=== PATIENT | female | born 1950 ===

== ENCOUNTER 2017-07-03 05:49 | Emergency (ER) | payer MEDICAID ==
[2017-07-03 05:49] VITALS: BMI 28.9
[2017-07-03 06:08] VITALS: BP 107/69; PULSE 73; RESP 18; TEMP 98.4; O2SAT 100
--- NOTE | 2017-07-03 06:34 | ED PDOC ---
HPI: Female Pain Time Seen by Provider: 07/03/17 06:00 Chief Complaint (Nursing): Female Genitourinary Chief Complaint (Provider): Female Genitourinary History Per: Patient History/Exam Limitations: no limitations Onset/Duration Of Symptoms: Days (yesterday morning.) Quality Of Discomfort: Burning, "Pain" Associated Symptoms: denies: Fever, Nausea, Vomiting, Back Pain, Other (No abdominal pain.) Additional Complaint(s): Gena Rivas is a 67 year old female with a past medical history of hypertension and arthritis who presents to the ED for chief complaints of burning and painful urination since yesterday morning, along with some associated urinary frequency. Denies any fever, vomiting, nausea, back pain, or abdominal pain. PMD: Dr. Sage Gustafson. Past Medical History Reviewed: Historical Data, Nursing Documentation, Vital Signs Vital Signs: Last Vital Signs Temp 98.4 F 07/03/17 06:00 Pulse 73 07/03/17 06:00 Resp 18 07/03/17 06:00 BP 107/69 07/03/17 06:00 Pulse Ox 100 07/03/17 06:00 - Medical History PMH: Arthritis, HTN, Osteoporosis, TIA (1 yr ago?) Denies: Chronic Kidney Disease - Surgical History Surgical History: No Surg Hx - Family History Family History: States: No Known Family Hx - Home Medications Home Medications: Ambulatory Orders Medication Instructions Recorded Tobramycin 0.3% [Tobramycin 5 Ml] 1 drop OP TID #0 bottle 08/13/14 Aspirin [Aspirin] 81 mg PO DAILY 09/12/14 Ergocalciferol (Vitamin D2) 1.25 mg PO QWK 09/12/14 [Vitamin D2] Hydrochlorothiazide/Losartan 50 mg PO DAILY 09/12/14 [Losartan 50MG-HCTZ 12.5MG] Patient Own Med [Patient Own Med] 70 mg PO QWK 09/12/14 DiphenhydrAMINE [Benadryl] 1 - 2 tab PO Q6 PRN #24 cap 10/17/16 Hydrocortisone 1% Oint [Cortizone 0.5 gm TP BID #1 tube 10/17/16 1% Oint] Nitrofurantoin Macrocrystals 100 mg PO BID #14 cap 07/03/17 [Macrobid] - Allergies Allergies/Adverse Reactions: Allergies Allergy/AdvReac Type Severity Reaction Status Date / Time No Known Allergies Allergy Verified 10/17/16 10:49 Review of Systems ROS Statement: Except As Marked, All Systems Reviewed And Found Negative Constitutional: Negative for: Fever Gastrointestinal: Negative for: Nausea, Vomiting, Abdominal Pain Genitourinary Female: Positive for: Dysuria (Burning sensation with urination.) , Frequency (Frequency with urination.) Musculoskeletal: Negative for: Back Pain Physical Exam - Reviewed Nursing Documentation Reviewed: Yes Vital Signs Reviewed: Yes - Physical Exam Appears: Positive for: Well, Non-toxic, No Acute Distress Head Exam: Positive for: ATRAUMATIC, NORMAL INSPECTION, NORMOCEPHALIC Skin: Positive for: Normal Color, Warm Eye Exam: Positive for: Normal appearance, EOMI ENT: Positive for: Normal ENT Inspection Neck: Positive for: Normal Cardiovascular/Chest: Positive for: Regular Rate, Rhythm. Negative for: Murmur , Tachycardia Respiratory: Positive for: Normal Breath Sounds. Negative for: Wheezing, Respiratory Distress Gastrointestinal/Abdominal: Positive for: Normal Exam, Soft. Negative for: Tenderness Extremity: Positive for: Normal ROM Neurologic/Psych: Positive for: Alert, Oriented - ECG O2 Sat by Pulse Oximetry: 100 (RA) Pulse Ox Interpretation: Normal Medical Decision Making Medical Decision Makin: Initial Plan: * U-Dip * Urine culture * Re-Evaluation Initial Impression: Urinary tract infection. U-Dip is consistent with Urinary tract infection; Simple Uncomplicated Urinary tract infection. Patient discharged with prescription for Macrobid. Scribe Attestation: Documented by Shirley Thrasher acting as a scribe for Ivonne Adkins MD. Provider Scribe Attestation: All medical record entries made by the Scribe were at my direction and personally dictated by me. I have reviewed the chart and agree that the record accurately reflects my personal performance of the history, physical exam, medical decision making, and the department course for this patient. I have also personally directed, reviewed, and agree with the discharge instructions and disposition. Disposition - Clinical Impression Clinical Impression: Urinary tract infection - Disposition Referrals: Sage Gustafson [Family Provider] - Disposition Time: 18:30 Condition: GOOD Additional Instructions: Take your medication as instructed. Follow up with your PCP in 2 days. Prescriptions: Nitrofurantoin Macrocrystals [Macrobid] 100 mg PO BID #14 cap Instructions: Urinary Tract Infection in Women (GEN) Forms: [employer] (Kinyarwanda) Print Language: INDIAN
== END 2017-07-03 06:25 | disposition home or self-care (01) ==
LOC: H.ER 05:49
DX: N39.0 Urinary tract infection, site not specified (principal); I10 Essential (primary) hypertension; Z79.82 Long term (current) use of aspirin; Z86.73 Personal history of transient ischemic attack (TIA), and cerebral infarction without residual deficits

== ENCOUNTER 2017-10-17 06:55 | Emergency (ER) | payer MEDICAID ==
[2017-10-17 06:55] VITALS: BMI 28.9
[2017-10-17 07:18] VITALS: BP 145/81; PULSE 70; RESP 19; TEMP 98.4; O2SAT 100
[2017-10-17] MEDS ORDERED: Sodium Chloride 0.9% 1,000 ML IV STA (07:40)
[2017-10-17 08:06] LABS: BASO # 0.1 K/uL (0.0-0.2); BASO % 1.3 % (0.0-2.0); EOS # 0.1 K/uL (0.0-0.7); EOS % 2.5 % (0.0-4.0); HEMATOCRIT 39.3 % (34.0-47.0); LYMPH # 0.8 K/uL (1.0-4.3); LYMPH % 20.3 % (20.0-40.0); MEAN CELL VOLUME 87.4 fl (81.0-99.0); MEAN CORPUSCULAR HEMOGLOBIN 27.9 pg (27.0-31.0); MEAN PLATELET VOLUME 8.4 fl (7.2-11.7); MONO # 0.4 K/uL (0.0-0.8); MONO % 9.7 % (0.0-10.0); NEUT # 2.7 K/uL (1.8-7.0); NEUT % 66.2 % (50.0-75.0); NRBC % 0.2 % (0.0-0.0); RED CELL DISTRIBUTION WIDTH 14.2 % (11.5-14.5); WHITE BLOOD COUNT 4.1 K/uL (4.8-10.8)
[2017-10-17 08:36] LABS: ALKALINE PHOSPHATASE 81 U/L (38-126); ALT/SGPT 30 U/L (9-52); AST/SGOT 26 U/L (14-36); BILIRUBIN,TOTAL 0.5 mg/dl (0.2-1.3); BLOOD UREA NITROGEN 17 mg/dl (7-17); CALCIUM 8.9 mg/dL (8.4-10.2); CARBON DIOXIDE 29 mmol/L (22-30); CHLORIDE 107 mmol/L (98-107); GFR AFRICAN-AMERICAN > 60; GLUCOSE,RANDOM 88 mg/dL (65-105); SODIUM 144 mmol/l (132-148); TOTAL PROTEIN 7.8 G/DL (6.3-8.2)
[2017-10-17 10:07] LABS: RBC URINE 3 /hpf (0-3); URINE BACTERIA RARE (<OCC); URINE BILIRUBIN NEGATIVE (NEGATIVE); URINE BLOOD SMALL (NEGATIVE); URINE COLOR STRAW (YELLOW); URINE GLUCOSE (UA) NEG (Normal); URINE KETONE NEGATIVE (NEGATIVE); URINE LEUKOCYTE ESTERASE SMALL Leu/uL (Negative); URINE PROTEIN NEGATIVE (NEGATIVE); URINE UROBILINOGEN 0.2-1.0 mg/dL (0.2-1.0); WBC URINE 4 /hpf (0-5)
--- NOTE | 2017-10-17 10:15 | RAD ---
HISTORY: thoracic back pain COMPARISON: Chest radiographs 05/22/2014. TECHNIQUE: Chest PA and lateral FINDINGS: LUNGS: No active pulmonary disease. PLEURA: No significant pleural effusion identified. No pneumothorax apparent. CARDIOVASCULAR: Mild cardiomegaly noted. No pulmonary vascular derangement identified. OSSEOUS STRUCTURES: No significant abnormalities. VISUALIZED UPPER ABDOMEN: Normal. OTHER FINDINGS: None. IMPRESSION: Mild cardiomegaly. No acute pulmonary disease appreciated.
--- NOTE | 2017-10-17 10:28 | ED PDOC ---
HPI: Back Time Seen by Provider: 10/17/17 07:07 Chief Complaint (Nursing): Back Pain Past Medical History Vital Signs: Last Vital Signs Temp 98.4 F 10/17/17 07:16 Pulse 70 10/17/17 07:16 Resp 19 10/17/17 07:16 BP 145/81 10/17/17 07:16 Pulse Ox 100 10/17/17 07:16 - Medical History PMH: Arthritis, HTN, Osteoporosis, TIA (1 yr ago?) Denies: Chronic Kidney Disease - Home Medications Home Medications: Ambulatory Orders Medication Instructions Recorded Aspirin [Aspirin] 81 mg PO DAILY 09/12/14 Alprazolam [Xanax] 0.5 mg PO HS PRN 10/17/17 Ciprofloxacin [Cipro] 500 mg PO BID #14 tab 10/17/17 Cyclobenzaprine [Cyclobenzaprine 10 mg PO Q8 PRN #9 tab 10/17/17 HCl] Losartan/Hydrochlorothiazide 1 tab PO DAILY 10/17/17 [Losartan-Hctz 100-25 mg Tab] Naproxen [Naprosyn] 500 mg PO BID PRN 10/17/17 Naproxen [Naprosyn] 500 mg PO BID PRN #14 tablet 10/17/17 traMADol [Ultram] 50 mg PO TID PRN #12 tab 10/17/17 - Allergies Allergies/Adverse Reactions: Allergies Allergy/AdvReac Type Severity Reaction Status Date / Time No Known Allergies Allergy Verified 10/17/16 10:49 - Laboratory Results Result Diagrams: 10/17/17 07:50 10/17/17 07:50 Urine dip results: Positive for: Leukocyte Esterase (trace), Blood (TR) - ECG O2 Sat by Pulse Oximetry: 100 Pulse Ox Interpretation: Normal Disposition - Clinical Impression Clinical Impression: Back pain, UTI (urinary tract infection) - Patient ED Disposition Is Patient to be Admitted: No Counseled Patient/Family Regarding: Studies Performed, Diagnosis, Need For Followup, Rx Given - Disposition Disposition: Routine/Home Disposition Time: 10:26 Condition: STABLE Additional Instructions: Take medication as directed, return to ER for any worse or new symptoms. See your doctor in 2-3 days for re-evaluation. Prescriptions: Ciprofloxacin [Cipro] 500 mg PO BID #14 tab Cyclobenzaprine [Cyclobenzaprine HCl] 10 mg PO Q8 PRN #9 tab PRN Reason: Muscle Spasm Naproxen [Naprosyn] 500 mg PO BID PRN #14 tablet PRN Reason: Pain, Moderate (4-7) traMADol [Ultram] 50 mg PO TID PRN #12 tab PRN Reason: Pain, Moderate (4-7) Instructions: Thoracic Pain (ED), Back Pain (ED), Urinary Tract Infection in Women (ED) Forms: [employer] (Monegasque) Print Language: HAITIAN
--- NOTE | 2017-10-18 12:25 | CARD ---
APPROVED REPORT EKG Measurement Heart [id number] <Conclusion> Normal sinus rhythm Normal ECG
== END 2017-10-17 10:36 | disposition home or self-care (01) ==
LOC: H.ER 06:55
DX: M54.9 Dorsalgia, unspecified (principal); N39.0 Urinary tract infection, site not specified; I10 Essential (primary) hypertension
CPT/HCPCS: 71020; 80053; 81003; 82550; 84484; 85025; 93005; 96360; 96361; 99282; J1885; J7040

== ENCOUNTER 2019-04-01 17:17 | Emergency (ER) | payer MEDICAID ==
[2019-04-01 17:18] VITALS: BMI 30.9
[2019-04-01 17:47] VITALS: BP 138/92; PULSE 83; RESP 16; TEMP 98.3; O2SAT 100
--- NOTE | 2019-04-01 18:38 | ED PDOC ---
HPI: Back Time Seen by Provider: 04/01/19 18:00 Chief Complaint (Nursing): Back Pain Chief Complaint (Provider): Back pain History Per: Patient History/Exam Limitations: no limitations Onset/Duration Of Symptoms: Days (4x) Current Symptoms Are (Timing): Still Present Severity: Moderate Additional Complaint(s): 68 year old female with a past medical history of chronic back pain and lupus presents to the ED for an evaluation of back pain that started 2x days ago. Patient states that 3x dasy ago, she went to physical therapy for her back, and the next day she developed increasing mid to lower back pain (mostly to the right side). Patient states that the pain radiates down her right leg with intermittent numbness of the right leg. Patient states that this morning she woke up with stiffness and an increase in pain. Patient reports taking naproxen today 9x hours prior to arrival, tylenol 6x hours prior to arrival, and flexeril last night with minimal relief prompting ED visit today. Patient denies having urinary or bowel incontinence, urinary frequency, urgency, fevers, cough, chest pain, nausea, vomiting, or abdominal pain. PMD: Sage Gustafson MD Past Medical History Reviewed: Historical Data, Nursing Documentation, Vital Signs Vital Signs: Last Vital Signs Temp 98.3 F 04/01/19 17:44 Pulse 83 04/01/19 17:44 Resp 16 04/01/19 17:44 BP 138/92 H 04/01/19 17:44 Pulse Ox 100 04/01/19 17:44 LV Report Viewed: Yes Primary Care Provider: Sage Gustafson - Medical History PMH: Anxiety, Arthritis, Fibromyalgia, HTN, Osteoporosis, TIA, Chronic Pain (back) Denies: Chronic Kidney Disease Other PMH: lupus - Surgical History Surgical History: Cholecystectomy - Family History Family History: States: No Known Family Hx - Home Medications Home Medications: Ambulatory Orders Medication Instructions Recorded Aspirin 81 mg PO DAILY 09/12/14 Alprazolam [Xanax] 0.5 mg PO HS PRN 10/17/17 Losartan/Hydrochlorothiazide 1 tab PO DAILY 10/17/17 [Losartan-Hctz 100-25 mg Tab] Naproxen [Naprosyn] 500 mg PO BID PRN 10/17/17 traMADol [Ultram] 50 mg PO TID PRN #12 tab 10/17/17 Cyclobenzaprine [Cyclobenzaprine 10 mg PO Q8H PRN #15 tab 04/01/19 HCl] Lidocaine 5% [Lidoderm] 1 ea TD Q12H PRN #10 patch 04/01/19 traMADol [Ultram] 50 mg PO Q8H PRN #9 tab 04/01/19 - Allergies Allergies/Adverse Reactions: Allergies Allergy/AdvReac Type Severity Reaction Status Date / Time No Known Allergies Allergy Verified 02/14/18 09:16 Review of Systems ROS Statement: Except As Marked, All Systems Reviewed And Found Negative Constitutional: Negative for: Fever Cardiovascular: Negative for: Chest Pain Respiratory: Negative for: Cough Gastrointestinal: Negative for: Nausea, Vomiting, Abdominal Pain, Other (incontinence of bowels) Genitourinary Female: Negative for: Frequency (urgency), Incontinence Musculoskeletal: Positive for: Back Pain (mid to lower back, mostly to right side, radiates down right leg, intermittent numbness or right leg. (-) pain or n umbness or left leg.) Physical Exam - Reviewed Nursing Documentation Reviewed: Yes Vital Signs Reviewed: Yes - Physical Exam Appears: Positive for: Well, Non-toxic, No Acute Distress Head Exam: Positive for: ATRAUMATIC, NORMOCEPHALIC Skin: Positive for: Normal Color, Warm, Dry Pulses-Dorsalis Pedis (L): 2+ Pulses-Dorsalis Pedis (R): 2+ Pulses-Femoral (L): 2+ Pulses-Femoral (R): 2+ Pulses-Radial (L): 2+ Pulses-Radial (R): 2+ Back: Positive for: Normal Inspection, Other (point tenderness to mid back and right lower back. skin intact with no rashes. back pain reproducible with movement and upon right leg raise.) Neurological/Psych: Positive for: Awake, Alert, Oriented (3x) - Laboratory Results Urine dip results: Negative for: Blood, Nitrate - ECG O2 Sat by Pulse Oximetry: 100 (RA) Pulse Ox Interpretation: Normal Medical Decision Making Medical Decision Makin:00 Initial impression: 68 year old female with back pain Initial plan: * udip * toradol 30 mg im * flexeril 10 mg po * reevaluation 18:35 urinalysis normal. (-) nitrates. (-) blood leuks (small) 19:00 Upon reevaluation, patient reports having a slight improvement in pain. Upon rising from bed, patient reports still having pain to the mid-right side of her back. Patient continues to have difficulty on ambulation due to back pain. Tramadol 50 mg PO ordered. Will reassess. 20:00 Upon reevaluation, patient reports an improvement in pain and is requesting to go home. Upon provider reevaluation patient is feeling better, is medically stable, and requires no further treatment in the ED at this time. Patient will be discharged home with Rx for tramadol, flexeril, and lidoderm patch. Patient educated on opioid use and addiction. Patient instructed to take tylenol and motrin for pain, and to only take tramadol for severe pain.. Counseling was provided and all questions were answered regarding diagnosis. Patient verbalizes understanding and agreement to discharge plan. Return if symptoms persist or worsen. Scribe Attestation: Documented by Patricia Strange, acting as a scribe for Claudia SCHILLINGN. Provider Scribe Attestation: All medical record entries made by the Scribe were at my direction and personally dictated by me. I have reviewed the chart and agree that the record accurately reflects my personal performance of the history, physical exam, medical decision making, and the department course for this patient. I have also personally directed, reviewed, and agree with the discharge instructions and disposition. Disposition - Clinical Impression Clinical Impression: Mid back pain - Patient ED Disposition Is Patient to be Admitted: No Counseled Patient/Family Regarding: Diagnosis, Need For Followup, Rx Given - Disposition Disposition: Routine/Home Disposition Time: 20:00 Condition: IMPROVED Prescriptions: Cyclobenzaprine [Cyclobenzaprine HCl] 10 mg PO Q8H PRN #15 tab PRN Reason: Muscle Spasm Lidocaine 5% [Lidoderm] 1 ea TD Q12H PRN #10 patch PRN Reason: Pain, Severe (8-10) traMADol [Ultram] 50 mg PO Q8H PRN #9 tab PRN Reason: Pain, Severe (8-10) Instructions: Upper Back Pain (DC), Back Exercises Forms: [employer] (Canadian) Print Language: CENTRAL AFRICAN - POA Present On Arrival: None
== END 2019-04-01 20:10 | disposition home or self-care (01) ==
LOC: H.ER 17:17
DX: M54.9 Dorsalgia, unspecified (principal)
CPT/HCPCS: 96372; 99283; J1885

== ENCOUNTER 2019-04-24 06:33 | Emergency (ER) | payer MEDICARE, MEDICAID ==
[2019-04-24 06:43] VITALS: RESP 18; BMI 30.2
--- NOTE | 2019-04-24 07:46 | ED PDOC ---
Arrival/HPI - General Chief Complaint: Hip Pain Time Seen by Provider: 04/24/19 07:03 Historian: Patient - History of Present Illness Associated Symptoms (Text): 68 y/o female presents to the ED complaining of back and leg pain since 2 days ago. Patient states she was reaching something in the cabinet when she felt pain in her back and leg. She report she was here a few days ago with the similar symptoms and takes naproxen for the pain with mild relief. Patient denies any urinary problems. PMD: Sage Alvarado Past Medical History - Provider Review Primary Care Provider: Sage Gustafson - Infectious Disease Hx of Infectious Diseases: None - Cardiac Hx Cardiac Disorders: Yes Hx Hypertension: Yes - Pulmonary Hx Respiratory Disorders: No - Neurological Hx Neurological Disorder: Yes Hx Transient Ischemic Attacks (TIA): Yes - HEENT Hx HEENT Disorder: No - Renal Hx Renal Disorder: No - Endocrine/Metabolic Hx Endocrine Disorders: Yes Hx Systemic Lupus Erythematosus: Yes - Hematological/Oncological Hx Blood Disorders: No - Integumentary Hx Dermatological Disorder: No - Musculoskeletal/Rheumatological Hx Musculoskeletal Disorders: Yes Hx Arthritis: Yes Hx Osteoporosis: Yes - Gastrointestinal Hx Gastrointestinal Disorders: No - Genitourinary/Gynecological Hx Genitourinary Disorders: No - Psychiatric Hx Psychophysiologic Disorder: Yes Hx Anxiety: Yes Hx Substance Use: No - Surgical History Hx Cholecystectomy: Yes - Anesthesia Hx Anesthesia: Yes Hx Anesthesia Reactions: No Hx Malignant Hyperthermia: No Family/Social History Smoking Status: Never Smoked Hx Alcohol Use: No Hx Substance Use: No Allergies/Home Meds Allergies/Adverse Reactions: Allergies No Known Allergies Allergy (Verified 04/24/19 06:53) Home Medications: Home Meds Medication Instructions Recorded Confirmed Aspirin 81 mg PO DAILY 09/12/14 02/14/18 Alprazolam [Xanax] 0.5 mg PO HS PRN 10/17/17 02/14/18 Losartan/Hydrochlorothiazide 1 tab PO DAILY 10/17/17 02/14/18 [Losartan-Hctz 100-25 mg Tab] Naproxen [Naprosyn] 500 mg PO BID PRN 10/17/17 02/14/18 Review of Systems - Review of Systems Constitutional: Normal Eyes: Normal ENT: Normal Respiratory: Normal Cardiovascular: Normal Gastrointestinal: Normal Genitourinary Female: Normal Musculoskeletal: Normal, Back Pain, Other (Left leg pain) Skin: Normal Neurological: Normal Endocrine: Normal Hemo/Lymphatic: Normal Psychiatric: Normal Physical Exam Vital Signs Temp Pulse Resp BP Pulse Ox 04/24/19 06:42 98.2 F 84 18 113/73 100 Temperature: Afebrile Blood Pressure: Normal Pulse: Regular Respiratory Rate: Normal Appearance: Positive for: Well-Appearing, Non-Toxic, Comfortable Pain Distress: None Mental Status: Positive for: Alert and Oriented X 3 - Systems Exam Head: Present: Atraumatic, Normocephalic Pupils: Present: PERRL Extroacular Muscles: Present: EOMI Conjunctiva: Present: Normal Ears: Present: Normal Mouth: Present: Moist Mucous Membranes Neck: Present: Normal Range of Motion Respiratory/Chest: Present: Clear to Auscultation, Good Air Exchange. No: Respiratory Distress, Accessory Muscle Use, Wheezes Cardiovascular: Present: Regular Rate and Rhythm, Normal S1, S2. No: Murmurs Abdomen: No: Tenderness, Distention, Peritoneal Signs Back: Present: Normal Inspection, Midline Tenderness (Lumbar), Pain with Leg Raise, Other (+ straight leg ) Upper Extremity: Present: Normal Inspection. No: Cyanosis, Edema Lower Extremity: Present: Normal Inspection. No: Edema Neurological: Present: GCS=15, CN II-XII Intact, Speech Normal Skin: Present: Warm, Dry, Normal Color. No: Rashes Psychiatric: Present: Alert, Oriented x 3, Normal Insight, Normal Concentration Medical Decision Making ED Course and Treatment: Time:801 Impression: Plan: -CT -Toradol 15mg Scribe Attestation: Documented by Sweetie Thakur, acting as a scribe for Tracie Whittington. Provider Scribe Attestation: All medical record entries made by the Scribe were at my direction and personally dictated by me. I have reviewed the chart and agree that the record accurately reflects my personal performance of the history, physical exam, medical decision making, and the department course for this patient. I have also personally directed, reviewed, and agree with the discharge instructions and disposition. 1153: Patient's back pain is better but is now complaining of abdominal pain; epigastric tenderness. Disposition/Present on Arrival - Disposition Diagnosis: Acute exacerbation of chronic low back pain Disposition Time: 10:10 Patient Problems: Current Active Problems Problem Status Onset Acute exacerbation of chronic low back pain Acute Condition: IMPROVED Discharge Instructions (ExitCare): Low Back Pain in Adults Print Language: FRISIAN Prescriptions: Cyclobenzaprine [Cyclobenzaprine HCl] 10 mg PO TID PRN #15 tab PRN Reason: Pain Naproxen [Naprosyn] 500 mg PO BID PRN #15 tablet PRN Reason: Pain, Moderate (4-7) Referrals: Sage Gustafson [Primary Care Provider] - Forms: [employer] (Kyrgyz)
--- NOTE | 2019-04-24 09:10 | CT ---
Date of service: 04/24/2019 PROCEDURE: CT Lumbar Spine without contrast HISTORY: Low back pain COMPARISON: None available. TECHNIQUE: Axial computed tomography images were obtained of the lumbar spine without the use of intravenous contrast. Coronal and sagittal reformatted images were created and reviewed. Radiation dose: Total exam DLP = 541.6 mGy-cm. This CT exam was performed using one or more of the following dose reduction techniques: Automated exposure control, adjustment of the mA and/or kV according to patient size, and/or use of iterative reconstruction technique. FINDINGS: VERTEBRAE: Minimal grade 1 spondylolisthesis with L4 anterior to L5. Lumbar curvature is otherwise within normal limits. No destructive bony lesion appreciated. No spondylolysis or other fracture throughout. Vertebral body disc interspace heights are remarkable for mild loss of disc height at L1-2 including endplate sclerosis and anterior osteophyte development. Multilevel facet arthropathy is seen predominantly at the inferior lumbar spine. DISCS/SPINAL CANAL/NEURAL FORAMINA: L1-2: Limited disc bulging is seen posteriorly encroaching the lateral recesses symmetrically. No generalized central canal stenosis results although there is a mild bilateral neural foraminal stenosis. L2-3: Limited posterior disc bulge encroaches the bilateral lateral recesses symmetrically without generalized central canal stenosis. No significant neural foraminal stenosis bilaterally. L3-4: There is limited flattening of the ventral thecal sac by a small posterior disc bulge. No significant central canal or neural foraminal stenosis. L4-5: Grade 1 spondylolisthesis and limited posterior disc bulge causes mild central stenosis, also due to prominent facet joint degenerative arthropathy. Mild bilateral neural foraminal stenosis is also seen on degenerative basis. L5-S1: Limited posterior disc bulge is appreciate without stenosis of the central canal or neural foramina. No distortion of the thecal sac. PARASPINAL SOFT TISSUES: Unremarkable. OTHER FINDINGS: None. IMPRESSION: 1. Grade 1 spondylolisthesis, limited posterior disc bulge and moderate facet joint degenerative arthropathy causes mild central canal stenosis at L4-5 a mild bilateral neural foraminal stenosis. 2. Diffuse limited disc bulging is seen throughout the lumbar spine without additional generalized central canal stenosis though lateral recesses are encroached at upper and mid levels. Mild degenerative neural foraminal stenosis bilaterally at L1-2. 3. No gross disc herniation appreciable though MRI is more sensitive in evaluation of intervertebral discs.
[2019-04-24] MEDS ORDERED: Atrop/Hyos/Scop/PhenoB Elixir PO STA (11:53)
[2019-04-24] MEDS ORDERED: Alum-Mag Hydrox-Simethicone Susp (30 mL) PO STA (11:53)
[2019-04-24] MEDS ORDERED: Alum-Mag Hydrox-Simethicone Susp (30 mL) ONE (12:27)
--- NOTE | 2019-04-24 12:56 | US ---
Date of service: 04/24/2019 HISTORY: RUQ pain COMPARISON: Abdomen ultrasound 03/27/2017. TECHNIQUE: Sonographic evaluation of the right upper quadrant of the abdomen. FINDINGS: LIVER: Measures 16.2 cm in length. Normal echogenicity of the liver parenchyma. No mass. No intrahepatic bile duct dilatation. 10 mm common hepatic duct dilatation, likely post cholecystectomy related. GALLBLADDER: Prior cholecystectomy. COMMON BILE DUCT: Measures 8.0 mm. No stones. [id number] dilatation is likely post cholecystectomy related. No choledocholithiasis identified. PANCREAS: The body of the pancreas appears unremarkable but the head and tail are obscured by overling bowel/stomach gas. RIGHT KIDNEY: Measures 10.2 cm in length. Normal echogenicity. No calculus, mass, or hydronephrosis. AORTA: No aneurysmal dilatation. IVC: Unremarkable. OTHER FINDINGS: None . IMPRESSION: Prior cholecystectomy apparently with likely related dilatation of the central intrahepatic and extrahepatic ducts as per above. No choledocholithiasis identified. Biliary tree pattern not significantly changed her prior ultrasound 03/27/2017. Body of pancreas is unremarkable with the head and tail obscured by overlying bowel gas. No significant pancreatic duct dilatation appreciable.
[2019-04-24 13:06] LABS: BASO % 0.6 % (0.0-2.0); EOS # 0.1 K/uL (0.0-0.7); HEMOGLOBIN 12.4 g/dL (12.0-16.0); LYMPH % 13.9 % (20.0-40.0); MEAN CELL VOLUME 89.2 fl (81.0-99.0); MEAN CORPUSCULAR HEMOGLOBIN 29.3 pg (27.0-31.0); MEAN CORPUSCULAR HGB CONC 32.9 g/dL (33.0-37.0); MEAN PLATELET VOLUME 9.2 fl (7.2-11.7); MONO # 0.8 K/uL (0.0-0.8); NEUT # 5.2 K/uL (1.8-7.0); NEUT % 73.5 % (50.0-75.0); NRBC % 0.1 % (0.0-0.0); RBC 4.22 Mil/uL (3.80-5.20); WHITE BLOOD COUNT 7.1 K/uL (4.8-10.8)
[2019-04-24 13:15] LABS: ALB/GLOB RATIO 1.1 (1.0-2.1); ALBUMIN 4.1 g/dL (3.5-5.0); ALT/SGPT 91 U/L (9-52); AST/SGOT 78 U/L (14-36); BLOOD UREA NITROGEN 25 mg/dl (7-17); GFR NON-AFRICAN AMERICAN > 60; LIPASE 147 U/L (23-300)
[2019-04-24 13:58] VITALS: BP 131/72; PULSE 77; TEMP 98.1; O2SAT 97
--- NOTE | 2019-04-24 17:25 | CARD ---
APPROVED REPORT Date of service: 04/24/2019 EKG Measurement Heart [id number] <Conclusion> Normal sinus rhythm Minimal voltage criteria for LVH, may be normal variant Borderline ECG
== END 2019-04-24 13:54 | disposition home or self-care (01) ==
LOC: H.ER 06:33
DX: M54.5 Low back pain (principal); R10.13 Epigastric pain; G89.29 Other chronic pain; I10 Essential (primary) hypertension; M32.9 Systemic lupus erythematosus, unspecified
CPT/HCPCS: 72131; 76705; 80053; 83690; 85025; 93005; 96374; 96375; 99285; J1885; J2270